=== PATIENT | female | born 1985 | race Caucasian/White ===

== ENCOUNTER → 2018-03-03 | Outpatient (CLI) | payer OTHER | END | disposition home or self-care (01) | LOC: CFH 16:02 | PROVIDERS: ATTEND Nurse Practitioner Family | DX: M51.27 Other intervertebral disc displacement, lumbosacral region (principal); M48.03 Spinal stenosis, cervicothoracic region; M25.78 Osteophyte, vertebrae; M54.31 Sciatica, right side | CPT/HCPCS: 72148 ==